=== PATIENT | female | born 1985 | race Hispanic/Latino ===

== ENCOUNTER 2018-11-27 17:27 | Emergency (ER) | payer BC ==
[2018-11-27] MEDS ORDERED: Lactated Ringer's 1,000 ML IV STA (18:10)
[2018-11-27] MEDS ORDERED: DiphenhydrAMINE 50 mg/ml Inj IVP STA (18:10)
[2018-11-27] MEDS ORDERED: Dextrose 5%/Lactated Ringer's 1,000 ML IV SCH (18:15)
[2018-11-27] MEDS ORDERED: DiphenhydrAMINE 50 mg/ml Inj ONE (18:20)
[2018-11-27 18:42] LABS: BASO % 0.2 % (0.0-2.0); LYMPH # 0.4 K/uL (1.0-4.3); LYMPH % 8.2 % (20.0-40.0); MEAN CELL VOLUME 85.6 fl (81.0-99.0); MEAN CORPUSCULAR HEMOGLOBIN 28.9 pg (27.0-31.0); MEAN CORPUSCULAR HGB CONC 33.7 g/dL (33.0-37.0); MEAN PLATELET VOLUME 8.5 fl (7.2-11.7); MONO # 0.4 K/uL (0.0-0.8); MONO % 9.2 % (0.0-10.0); NEUT % 82.4 % (50.0-75.0); PLATELET COUNT 341 K/uL (130-400); RBC 4.84 Mil/uL (3.80-5.20); RED CELL DISTRIBUTION WIDTH 13.4 % (11.5-14.5); WHITE BLOOD COUNT 4.8 K/uL (4.8-10.8)
[2018-11-27 19:02] LABS: ALB/GLOB RATIO 1.1 (1.0-2.1); ALBUMIN 4.2 g/dL (3.5-5.0); ALT/SGPT 27 U/L (9-52); AST/SGOT 25 U/L (14-36); BLOOD UREA NITROGEN 19 mg/dl (7-17); CALCIUM 9.1 mg/dL (8.4-10.2); GFR NON-AFRICAN AMERICAN > 60
[2018-11-27 19:03] LABS: LIPASE 50 U/L (23-300)
--- NOTE | 2018-11-27 19:04 | ED PDOC ---
HPI:Nausea, Vomiting, Diarrhea Time Seen by Provider: 11/27/18 17:54 Chief Complaint (Nursing): GI Problem Chief Complaint (Provider): GI Problem History Per: Patient History/Exam Limitations: no limitations Onset/Duration Of Symptoms: Hrs (x17 hours) Current Symptoms Are (Timing): Still Present Quality Of Discomfort: Cramping, "Pain" Associated Symptoms: Fever, Chills, Nausea, Vomiting, Diarrhea, Loss Of Appetite Additional Complaint(s): 33 year old female with no significant past medical history presents to the ED with vomiting and diarrhea onset 2 am. Patient reports she had 10x episodes of intractable, nonbilious, nonbloody vomiting. She is unable to tolerate food or fluids associated with 3-4x episode of watery diarrhea, nausea, lightheadedness, malaise, fever and chills. She recently took antibiotics for an ear infection 2 week ago. Patient denies any sick contacts recent travel or abdominal pain. PMD: no regular doctor Abnormal Vaginal Bleeding: No Past Medical History Reviewed: Historical Data, Nursing Documentation, Vital Signs Vital Signs: Last Vital Signs Temp 98.3 F 11/27/18 17:44 Pulse 136 H 11/27/18 17:44 Resp 22 11/27/18 17:44 BP 131/81 11/27/18 17:44 Pulse Ox 97 11/27/18 17:44 - Medical History PMH: No Chronic Diseases - Surgical History Surgical History: No Surg Hx - Family History Family History: States: Diabetes, Hypertension - Social History Current smoker - smoking cessation education provided: No Ex-Smoker (has not smoked in the last 12 months): No Alcohol: None - Home Medications Home Medications: Ambulatory Orders Medication Instructions Recorded Ondansetron ODT [Zofran ODT] 1 odt PO Q6 PRN #20 odt 11/27/18 - Allergies Allergies/Adverse Reactions: Allergies Allergy/AdvReac Type Severity Reaction Status Date / Time No Known Allergies Allergy Verified 11/27/18 17:48 Review of Systems ROS Statement: Except As Marked, All Systems Reviewed And Found Negative Constitutional: Positive for: Fever, Chills, Malaise Cardiovascular: Positive for: Light Headedness Gastrointestinal: Positive for: Nausea, Vomiting, Diarrhea. Negative for: Abdominal Pain Physical Exam - Reviewed Nursing Documentation Reviewed: Yes Vital Signs Reviewed: Yes - Physical Exam Appears: Positive for: No Acute Distress (tired appearing) Head Exam: Positive for: ATRAUMATIC, NORMOCEPHALIC Skin: Positive for: Warm, Dry Eye Exam: Positive for: EOMI, PERRL ENT: Positive for: Other (dry mucous membranes) Neck: Positive for: Painless ROM, Supple Cardiovascular/Chest: Positive for: Regular Rate, Rhythm. Negative for: Murmur Respiratory: Positive for: Normal Breath Sounds. Negative for: Respiratory Distress Gastrointestinal/Abdominal: Positive for: Bowel Sounds (hyperactive), Soft. Negative for: Tenderness, Mass, Distended, Guarding, Rebound Back: Positive for: Normal Inspection. Negative for: L CVA Tenderness, R CVA Tenderness Extremity: Positive for: Normal ROM. Negative for: Deformity Lymphatic: Negative for: Adenopathy Neurologic/Psych: Positive for: Alert. Negative for: Motor/Sensory Deficits - Laboratory Results Result Diagrams: 11/27/18 18:30 11/27/18 18:30 - ECG O2 Sat by Pulse Oximetry: 97 (RA) Pulse Ox Interpretation: Normal Medical Decision Making Medical Decision Making: Time: 175 Initial Impression: vomiting, diarrhea and dehydration Differential diagnoses include but are not limited to: electrolyte abnormalities , sepsis, gastroenteritis, and viral syndrome Initial plan: --CMP --HCG --Lact acid --Lipase --Magnesium --Phosphorous --U preg --U dip --CBC with differentials --Benadryl 25 mg IVP --fluids --Pepcid 20 mg IVP --Reglan 10 mg IV Labs demonstrate no emergently significant abnormalities 2100 Pt tolerated PO in ER and reports feeling better. DW pt findings and plan of care. Rest, slow PO fluids, f/u [facility] or PCP in 24 hours. Scribe Attestation: Documented by Mariana Billingsley, acting as a scribe for Aleida Encarnacion MD. Provider Scribe Attestation: All medical record entries made by the Scribe were at my direction and personally dictated by me. I have reviewed the chart and agree that the record accurately reflects my personal performance of the history, physical exam, medical decision making, and the department course for this patient. I have also personally directed, reviewed, and agree with the discharge instructions and disposition. Disposition - Clinical Impression Clinical Impression: Vomiting and diarrhea - Disposition Referrals: [facility] [Outside] (FOLLOW UP WITH YOUR DOCTOR OR [facility] IN 24 HOURS) Disposition: Routine/Home Disposition Time: 21:30 Condition: IMPROVED Additional Instructions: TAKE SLOW SIPS OF GATORADE FOR THE NEXT 12-24 HOURS AND REST FOLLOWUP WITH PCP OR [facility] IN 24 HOURS FOR REEVALUATION Prescriptions: Ondansetron ODT [Zofran ODT] 1 odt PO Q6 PRN #20 odt PRN Reason: Nausea/Vomiting Instructions: Hypokalemia (DC), Viral Gastroenteritis, Adult (DC) Forms: [employer] (Italian)
[2018-11-27 20:16] LABS: BANDS 4 % (0-2); EOSINOPHIL 1 % (0-7); LYMPHOCYTE 10 % (20-50); MONOCYTE 8 % (0-10); NEUTROPHIL 77 % (42-75); PLATELET ESTIMATE NORMAL (NORMAL); TOTAL CELLS COUNTED 100
[2018-11-27 20:17] LABS: HYPOCHROMIC SLIGHT
[2018-11-27] MEDS ORDERED: Dextrose 5%/0.9% NS 1,000 ML IV SCH (20:30)
[2018-11-27 21:42] VITALS: BP 129/80; PULSE 91; RESP 16; TEMP 98.9
[2018-11-27 23:14] VITALS: O2SAT 97
== END 2018-11-27 22:07 | disposition home or self-care (01) ==
LOC: H.ER 17:27
DX: R11.10 Vomiting, unspecified (principal); R19.7 Diarrhea, unspecified; E86.0 Dehydration
CPT/HCPCS: 80053; 81025; 83605; 83690; 83735; 84100; 84703; 85025; 96374; 96375; 99284; J1200; J2405; J2765; J7042; J7120